=== PATIENT | male | born 1955 | race Caucasian/White ===

== ENCOUNTER 2018-07-31 13:51 | Emergency (ER) | payer MEDICAID ==
[2018-07-31 14:02] VITALS: BP 124/76; PULSE 86; RESP 20; TEMP 98.6
[2018-07-31] MEDS ORDERED: traMADol 50 MG STARTER PACK 3 TAB BTL PO STA (14:09)
--- NOTE | 2018-07-31 14:11 | ED ---
Fall HPI - General Chief Complaint: Fall Stated Complaint: Lt shoulder injury Time Seen by Provider: 07/31/18 14:03 Source: patient, RN notes reviewed, old records reviewed Mode of arrival: ambulatory - History of Present Illness Initial Comments: Patient is 63-year-old male history of left shoulder chronic pain and history of previous rotator cuff tear. Since emergency department today after a slip and fall yesterday. He reports he was carrying groceries up and tripped. He reports he landed on his left shoulder. He denies any elbow pain. Denies neck pain or head injury. No loss conscious. He denies peripheral paresthesias. Patient denies any recent fever, chills, shortness of breath, chest pain, back pain, abdominal pain, nausea vomiting, numbness or tingling, dysuria or hematuria, constipation or diarrhea, headaches or visual changes, or any other current symptoms - Related Data Previous Rx's Medication Instructions Recorded Ibuprofen 600 mg PO TID #20 tablet 07/31/18 traMADol HCL [Ultram] 50 mg PO Q6HR PRN 3 Days #12 tab 07/31/18 Allergies Allergy/AdvReac Type Severity Reaction Status Date / Time No Known Allergies Allergy Verified 07/31/18 14:02 Review of Systems ROS Statement: Those systems with pertinent positive or pertinent negative responses have been documented in the HPI. ROS Other: All systems not noted in ROS Statement are negative. Past Medical History Past Medical History: No Reported History History of Any Multi-Drug Resistant Organisms: None Reported Past Surgical History: Orthopedic Surgery Additional Past Surgical History / Comment(s): shoulder x 2 Past Psychological History: No Psychological Hx Reported Smoking Status: Current every day smoker Past Alcohol Use History: Daily Past Drug Use History: None Reported General Exam Limitations: no limitations General appearance: alert, in no apparent distress Head exam: Present: atraumatic, normocephalic, normal inspection Eye exam: Present: normal appearance, PERRL, EOMI. Absent: scleral icterus, conjunctival injection, periorbital swelling ENT exam: Present: normal exam, mucous membranes moist Neck exam: Present: normal inspection. Absent: tenderness, meningismus, lymphadenopathy Respiratory exam: Present: normal lung sounds bilaterally. Absent: respiratory distress, wheezes, rales, rhonchi, stridor Cardiovascular Exam: Present: regular rate, normal rhythm, normal heart sounds. Absent: systolic murmur, diastolic murmur, rubs, gallop, clicks GI/Abdominal exam: Present: soft, normal bowel sounds. Absent: distended, tenderness, guarding, rebound, rigid Extremities exam: Present: normal inspection Left Shoulder Exam: Present: normal inspection, tenderness (Is tenderness over the anterior aspect of the left shoulder joint. No tenderness over the clavicle or scapula.). Absent: full ROM (Patient has pain with range of motion greater than 90 of abduction.) Upper Arm exam: Present: normal inspection. Absent: full ROM Elbow exam: Present: normal inspection, full ROM Forearm Wrist exam: Present: normal inspection, full ROM Hand Wrist exam: Present: normal inspection, full ROM Neuro motor exam: Present: wrist extension intact, thumb opposition intact, thumb IP flexion intact, thumb adduction intact, fingers 2-5 abduction intact Vascular: Present: normal capillary refill Neurological exam: Present: alert, oriented X3, CN II-XII intact Psychiatric exam: Present: normal affect, normal mood Skin exam: Present: warm, dry, intact, normal color. Absent: rash Course Vital Signs 07/31/18 13:59 Temperature 98.6 F Pulse Rate 86 Respiratory 20 Rate Blood Pressure 124/76 O2 Sat by Pulse 99 Oximetry Procedures - Orthopedic Splinting/Casting Injury #1 Side: left Upper Extremity Injury Location: shoulder Upper Extremity Immobilizer: sling/shoulder immobilizer Medical Decision Making - Medical Decision Making 63-year-old male presents to limp left shoulder pain. Prior history of rotator cuff injury. He reports yesterday he tripped and fell. He states since that time he is unable to lift his arm greater than 90. Patient does have significant decreased range of motion unable to abduct greater than 90. He has full range of motion of the elbow and hand. Normal sensation distally. X- rays of the shoulder was completed. This shows evidence of some concern for before meals separation. No fracture. Concerned like range of motion due to rotator cuff injury. Patient was placed in a sling, given a short course of pain medication. Discussed proper follow-up with social media marketing specialist. All questions answered return parameters were discussed. Disposition Clinical Impression: Disorder of left rotator cuff, Acromioclavicular joint injury Disposition: HOME SELF-CARE Condition: Good Instructions: Rotator Cuff Injury (ED) Additional Instructions: Patient is to rest, apply ice over the shoulder. Patient should wrestling except for sleeping. Patient should still practice range of motion of the shoulder to avoid frozen shoulder syndrome. Follow-up with social media marketing specialist. Prescriptions: Ibuprofen 600 mg PO TID #20 tablet traMADol HCL [Ultram] 50 mg PO Q6HR PRN 3 Days #12 tab PRN Reason: Pain Is patient prescribed a controlled substance at d/c from ED?: No Referrals: Dalton Lizarraga DO [Primary Care Provider] - 1-2 days Aime Callejas MD [STAFF PHYSICIAN] - 1-2 days Time of Disposition: 14:36
--- NOTE | 2018-07-31 14:39 | XR ---
EXAMINATION TYPE: XR shoulder complete LT DATE OF EXAM: 07/31/2018 COMPARISON: NONE HISTORY: Fall. Pain. TECHNIQUE: 3 views FINDINGS: There is some widening of the AC joint space. Space measures 12 mm. There is minor spurring at the greater tuberosity. I see no definite fracture. There is no dislocation. IMPRESSION: Widening of the AC joint space consistent with ligamentous tear. No fracture seen.
== END 2018-07-31 14:55 | disposition home or self-care (01) ==
LOC: EC 13:51
DX: S49.92XA Unspecified injury of left shoulder and upper arm, initial encounter (principal); F17.200 Nicotine dependence, unspecified, uncomplicated; Z98.890 Other specified postprocedural states; W01.0XXA Fall on same level from slipping, tripping and stumbling without subsequent striking against object, initial encounter; Y92.89 Other specified places as the place of occurrence of the external cause
CPT/HCPCS: 99284

== ENCOUNTER → 2023-03-09 | Outpatient (CLI) | payer MEDICARE, OTHER ==
--- NOTE | 2023-03-09 12:28 | CTL ---
EXAMINATION TYPE: CT Low Dose Lung DATE OF EXAM ORDERED: 03/09/2023 HISTORY: 67-year-old male personal history nicotine dependence, 30 pack-year history, current smoker. Lung cancer screening CT DLP: 96.[address] CTDI: 2.7 mGy Automated exposure control for dose reduction was used. SCREENING VISIT: Baseline COMPARISON: None TECHNIQUE: Low dose computed tomography scan was performed through the chest with coronal and sagitta l reconstructions. CT DIAGNOSTIC QUALITY: Satisfactory FINDINGS: Heart is normal size without pericardial effusion. LAD and RCA coronary calcifications are present. Mild atherosclerotic arch calcifications with conventional arch vessel branching anatomy. Scattered nonenlarged mediastinal lymph nodes. No thoracic lymphadenopathy by CT size criteria. Minimal biapical pleural parenchymal scarring. Mild diffuse bronchial wall thickening. Mild hyperinfl ation. No consolidation or pleural effusion. Minimal underlying emphysematous change. A few scattered benign calcified granulomas on both sides. 4 mm anterior right midlung pulmonary nodule, axial image 147. Visualized upper abdomen shows no gross abnormality. Bones: Slight levoconvex curvature along the upper thoracic spine. Old left-sided rib fracture deform ities. IMPRESSION: 1. LungRADS 2, benign. A few scattered benign calcified granulomas on both sides as well as a small 4 mm right midlung pulmonary nodule on baseline screening. 2. COPD with mild emphysema. Recommend smoking cessation. 3. CAD with LAD and RCA coronary calcifications. CT LUNG RAD AND CT CHEST RECOMMENDATION: Lung-Rad 2 Benign Appearance or Behavior: Continue annual sc reening with LDCT in 12 months. S Modifier (other clinically significant findings): None
== END | disposition home or self-care (01) ==
LOC: RADCTMAIN 09:29
PROVIDERS: ATTEND Family Medicine
DX: Z12.2 Encounter for screening for malignant neoplasm of respiratory organs (principal); I25.84 Coronary atherosclerosis due to calcified coronary lesion; J43.9 Emphysema, unspecified; J84.10 Pulmonary fibrosis, unspecified; R91.1 Solitary pulmonary nodule; F17.210 Nicotine dependence, cigarettes, uncomplicated
CPT/HCPCS: 71271

== ENCOUNTER → 2024-03-23 | Outpatient (CLI) | payer MEDICARE, OTHER ==
--- NOTE | 2024-03-26 11:50 | PE ---
EXAMINATION TYPE: PET CT fusion skull to thigh DATE OF EXAM: 03/23/2024 CLINICAL INDICATION:Male, 68 years old with history of C61 PROSTATE CANCER; TECHNIQUE: Following the intravenous administration of 5.2 mCi of Ga-68 Illuccix (PSMA), whole body images are performed from the skull base to the midthigh. Images are reviewed on the computer in th e coronal, axial, and sagittal planes. Reconstructed rotating images are created on independent work station and reviewed on the computer. A non-contrast CT is performed in conjunction with the PET sc an. CT DLP: 350 mGycm, Automated exposure control for dose reduction was used. COMPARISON: CT 03/09/2023, PET/CT None, MRI: None FINDINGS: Mediastinal SUV mean is 1.9. Hepatic parenchyma SUV mean is 4.4. SKULL BASE AND NECK: No suspicious radiotracer activity. CHEST, MEDIASTINUM, AND HILAR REGION: Indeterminate uptake within the bilateral axillary lymph nodes max SUV 4.0 on the right and 4.0 on th e left. Abnormal uptake in bilateral pulmonary hilum of the lung max SUV 6.0 on the right and 5.4 on the left . ABDOMEN AND PELVIS: Intense uptake within the right prostate gland max SUV 44.3 lymph nodes with abnormal uptake including. * Right retroperitoneal 9.7 * Right iliac chain max SUV 45.5 * Right pelvic sidewall max SUV 22 * left pelvic sidewall lymph node max SUV 8.7. MUSCULOSKELETAL STRUCTURES: Scattered abnormal uptake within the osseous structures examples include: * Left inferior pubic ramus Max SUV 46 * Anterior right acetabulum max SUV 8.7 * right iliac bone max SUV 21.0 * Left iliac bone max SUV 12.7. * L3 posterior elements max SUV 51.1. * Left rib 11 max SUV 10.4 * left rib 9 max SUV 3.5. * Right rib 4 max SUV 2.6. * Rib 6 max SUV 30.3. * Right scapula max SUV 7.1. * Right manubrium max SUV 13.4. OTHER CT: Atherosclerosis of the arterial vasculature including the carotid bifurcations. Mild posada ry artery atherosclerosis. Hepatic steatosis. Clonic diverticulosis. Fat-containing buccal hernia. Pr ostate calcification. IMPRESSION: * Findings compatible with primary right prostate gland malignancy with scattered metastatic disease throughout the osseous structures, abdominal lymph nodes. * Indeterminate bilateral axillary and pulmonary hilum lymph nodes. Findings favor reactive lymph no sean with metastatic disease not excluded distance exam alone.
== END | disposition home or self-care (01) ==
LOC: RADPETMAIN 11:04
PROVIDERS: ATTEND Urology
DX: C61 Malignant neoplasm of prostate (principal)
CPT/HCPCS: 78815; A9596